=== PATIENT | female | born 1990 | race Caucasian/White ===

== ENCOUNTER 2017-12-13 12:25 | Observation (INO) | payer OTHER ==
[2017-12-13] MEDS ORDERED: METHYLERGONOVINE 0.2 MG INJ IM (13:00)
[2017-12-13] MEDS ORDERED: ONDANSETRON 4 MG INJ IV (13:00)
[2017-12-13] MEDS ORDERED: LIDOCAINE 1% (MPF) 30 ML INJ INJ (13:00)
[2017-12-13] MEDS ORDERED: OXYTOCIN 30 UNITS/LR 500 ML IV ×3 (13:00)
[2017-12-13] MEDS ORDERED: MISOPROSTOL 200 MCG TAB PR (13:00)
[2017-12-13] MEDS ORDERED: DIPHENOXYLATE/ATROPINE TAB PO (13:00)
[2017-12-13] MEDS ORDERED: IBUPROFEN 600 MG TAB PO (13:00)
[2017-12-13] MEDS ORDERED: CARBOPROST 250 MCG INJ IM (13:00)
[2017-12-13] MEDS ORDERED: BUTORPHANOL 2 MG INJ IV (13:00)
[2017-12-13] MEDS: LACTATED RINGER'S 1,000 ML IV* (13:21)
[2017-12-13 13:30] LABS: ADD MAN DIFF? NO
[2017-12-13 13:32] LABS: BASOPHILS % 0.3 % (0.0-2.0); EOSINOPHILS # 0.2 10^3/ul (0.0-0.5); HEMATOCRIT 34.9 % (37.0-47.0); HEMOGLOBIN 11.9 g/dl (12.0-16.0); LYMPHOCYTES # 1.3 10^3/ul (0.8-2.9); MEAN CORPUSCULAR HEMOGLOBIN 29.3 pg (29.0-33.0); MEAN CORPUSCULAR HGB CONC 34.1 g/dl (32.0-37.0); MONOCYTE # 0.5 10^3/ul (0.3-0.9); MONOCYTES % 5.1 % (0.0-11.0); NEUTROPHIL # 7.3 10^3/ul (1.6-7.5); NEUTROPHILS % 78.3 % (39.0-77.0); PLATELET COUNT 235 10^3/UL (140-415); RED BLOOD COUNT 4.06 10^6/ul (4.20-5.40); RED CELL DISTRIBUTION WIDTH 13.2 % (11.5-14.5)
[2017-12-13 13:32] LABS: WHITE BLOOD COUNT 9.3 10^3/ul (4.8-10.8)
[2017-12-13 13:51] LABS: PROTIME 12.2 Sec (11.9-14.9)
[2017-12-13 13:52] LABS: PARTIAL THROMBOPLASTIN TIME 28.1 Sec (25.0-35.0)
[2017-12-13] MEDS: DINOPROSTONE 20 MG VAG SUPP VAG (14:00)
[2017-12-13 16:22] LABS: RAPID PLASMA REAGIN NONREACTIVE (NR)
== END 2017-12-13 15:35 | disposition home or self-care (01) ==
LOC: L-D 12:25
PROVIDERS: Obstetrics & Gynecology
DX: O35.0XX0 Maternal care for (suspected) central nervous system malformation in fetus, not applicable or unspecified (principal); Z3A.22 22 weeks gestation of pregnancy
CPT/HCPCS: 85025; 85610; 85730; 86592; 86850; 86900; 86901; 99217